=== PATIENT | female | born 1990 | race Caucasian/White ===

== ENCOUNTER 2023-06-23 08:08 | Inpatient (IN) | payer BC, MEDICAID, SELFPAY ==
[2023-06-23] MEDS ORDERED: Misoprostol 200 MCG TAB PR PRN (08:14)
[2023-06-23] MEDS ORDERED: HYDROcodone/Acetaminophen 5/325 mg Tablet PO PRN ×3 (08:14→13:07)
[2023-06-23] MEDS ORDERED: Ondansetron PF 4 MG/2 ML Vial IVP PRN ×2 (08:14→13:07)
[2023-06-23] MEDS ORDERED: Lactated Ringer's 1,000 ML IV PRN (08:14)
[2023-06-23] MEDS ORDERED: fentaNYL 50 mcg/mL 1 mL Vial SLOW IVP PRN (08:14)
[2023-06-23] MEDS ORDERED: Methylergonovine 0.2 MG/ML VIAL IM PRN (08:14)
[2023-06-23] MEDS ORDERED: hydrALAZINE 20 MG/ML VIAL SLOW IVP PRN ×2 (08:14→13:07)
[2023-06-23] MEDS ORDERED: Promethazine HCl 25 MG/ML VIAL IM PRN (08:14)
[2023-06-23 08:45] LABS: Hematocrit 36.3 % (34.9-44.5); Hemoglobin 12.3 g/dL (12.0-15.5); Mean Corpuscular HGB CONC 33.9 g/dL (32.0-36.0); Mean Corpuscular Hemoglobin 31.2 pg (27.0-33.0); Mean Corpuscular Volume 92.1 fl (81.6-98.3); Mean Platelet Volume 10.4 fl (7.4-10.4); Platelet Count 212 10x3/uL (150-450); Red Blood Cell (RBC) Count 3.94 10x6/uL (3.90-5.03); White Blood Cell (WBC) Count 12.7 10x3/uL (3.5-10.5)
[2023-06-23 09:25] LABS: HBsAg Index 0.24 S/CO (0-0.99); Hep B Surf Ag - L&D Non-Reactive S/CO (NonReactive); Syphilis Antibody Nonreactive (Nonreactive); Syphilis Antibody Index 0.03 S/CO (<1.00 Non-Reactive)
[2023-06-23] MEDS: Lidocaine 1% (PF) 30 ML VIAL SC PRN (10:43)
[2023-06-23] MEDS: Oxytocin 30 units/NS 500 ML 500 ML IV SCH (10:43)
[2023-06-23] MEDS: Oxytocin 30 units/NS 500 ML 500 ML ONE (11:01)
[2023-06-23] MEDS: Lidocaine 1% (PF) 30 ML VIAL ONE (11:01)
[2023-06-23 11:25] VITALS: BMI 27.8
[2023-06-23] MEDS: Ibuprofen 800 MG TAB PO PRN (12:46)
[2023-06-23] MEDS ORDERED: Bisacodyl 10 MG SUPP PR PRN (13:07)
[2023-06-23] MEDS ORDERED: Milk Of Magnesia 30 ML UDCUP PO PRN (13:07)
[2023-06-23] MEDS ORDERED: Misoprostol 200 MCG TAB VAG PRN (13:07)
[2023-06-23] MEDS ORDERED: Lanolin Ointment 7 GM TUBE TOP PRN (13:07)
[2023-06-23] MEDS ORDERED: Oxytocin 30 units/NS 500 ML 500 ML IV SCH (13:07)
[2023-06-23] MEDS ORDERED: Benzocaine-Menthol 82.5 ML CAN TOP PRN (13:07)
[2023-06-23 21:37] LABS: #Basophils 0.03 10x3/uL (0.0-0.2); #Eosinphils 0.07 10x3/uL (0.0-0.5); #Monocytes 1.07 10x3/uL (0.0-1.1); #Neutrophils 14.62 10x3/uL (1.5-8.4); %Basophils 0.2 % (0.0-2.0); %Eosinophils 0.4 % (0.0-6.0); %Lymphocytes 11.2 % (18.0-47.0); %Neutrophils 81.5 % (40.0-75.0); Hematocrit 29.2 % (34.9-44.5); Hemoglobin 10.1 g/dL (12.0-15.5); Mean Corpuscular HGB CONC 34.6 g/dL (32.0-36.0); Mean Corpuscular Hemoglobin 31.8 pg (27.0-33.0); Mean Corpuscular Volume 91.8 fl (81.6-98.3); Mean Platelet Volume 9.5 fl (7.4-10.4); Platelet Count 199 10x3/uL (150-450); Red Blood Cell (RBC) Count 3.18 10x6/uL (3.90-5.03); White Blood Cell (WBC) Count 17.9 10x3/uL (3.5-10.5)
[2023-06-23 21:49] LABS: ALT (SGPT) 13 U/L (8-55); AST (SGOT) 19 U/L (5-34); Albumin 2.6 g/dL (3.5-5.0); Alkaline Phosphatase 108 U/L (40-110); Anion Gap 12 mmol/L (10-20); BUN (Urea Nitrogen) 10 mg/dL (7.0-18.7); Bilirubin, Total 0.3 mg/dL (0.2-1.2); Calc. Creatinine Clearance 162 mL/min (70-130); Calcium 8.6 mg/dL (7.8-10.44); Carbon Dioxide 22 mmol/L (22-29); Chloride 107 mmol/L (98-107); Estimated GFR 121; Globulin 2.8 g/dL (2.4-3.5); Glucose 109 mg/dL (70-105); Potassium 4.2 mmol/L (3.5-5.1); Protein, Total 5.4 g/dL (6.0-8.3); Sodium 137 mmol/L (136-145)
[2023-06-23] MEDS: Ferrous Sulfate 325 MG TAB PO SCH (22:17)
[2023-06-23] MEDS: Ibuprofen 800 MG TAB PO SCH (22:17)
[2023-06-23] MEDS: Docusate 100 MG CAP PO SCH (22:18)
[2023-06-23 22:32] LABS: Iron Binding Capacity, Total 349 mcg/dL (265-497)
[2023-06-23 23:11] LABS: Iron 60 ug/dL (50-170)
[2023-06-24 03:56] LABS: #Basophils 0.05 10x3/uL (0.0-0.2); #Eosinphils 0.13 10x3/uL (0.0-0.5); #Monocytes 0.89 10x3/uL (0.0-1.1); #Neutrophils 11.68 10x3/uL (1.5-8.4); %Basophils 0.3 % (0.0-2.0); %Eosinophils 0.9 % (0.0-6.0); %Lymphocytes 15.7 % (18.0-47.0); %Monocytes 5.8 % (0.0-10.0); %Neutrophils 76.4 % (40.0-75.0); Hematocrit 26.7 % (34.9-44.5); Hemoglobin 9.1 g/dL (12.0-15.5); Mean Corpuscular HGB CONC 34.1 g/dL (32.0-36.0); Mean Corpuscular Hemoglobin 31.7 pg (27.0-33.0); Mean Platelet Volume 9.6 fl (7.4-10.4); Platelet Count 189 10x3/uL (150-450); RBC Distribution Width 14.3 % (11.5-14.5); Red Blood Cell (RBC) Count 2.87 10x6/uL (3.90-5.03); White Blood Cell (WBC) Count 15.3 10x3/uL (3.5-10.5)
[2023-06-24] MEDS: Prenatal Vitamin 1 TAB PO SCH (07:58)
[2023-06-24] MEDS: Boostrix 0.5 ML (Tdap) VIAL (>/=7 yrs of age) IM ONE (09:31)
[2023-06-24] MEDS: Acetaminophen 500 MG TAB PO SCH (10:37)
[2023-06-24] MEDS: Iron Sucrose Complex 500 MG in Sodium Chloride 0.9% 250 ML 250 ML IVPB SCH (11:11)
[2023-06-24] MEDS: HYDROcodone/Acetaminophen 5/325 mg Tablet PO PRN (22:22)
[2023-06-25 08:26] VITALS: BP 94/50; TEMP 98.7
== END 2023-06-25 16:20 | disposition home or self-care (01) | DRG 807 ==
LOC: CSHLD 08:08 → CSHPP 13:37
PROVIDERS: ADMIT Obstetrics & Gynecology; ATTEND Obstetrics & Gynecology
PROC: 10E0XZZ Delivery of Products of Conception, External Approach (ICD-10-PCS; principal; 2023-06-23)
PROC: 0KQM0ZZ Repair Perineum Muscle, Open Approach (ICD-10-PCS; 2023-06-23)
DX: O48.0 Post-term pregnancy (principal); Z37.0 Single live birth; Z3A.40 40 weeks gestation of pregnancy; O70.1 Second degree perineal laceration during delivery; O99.02 Anemia complicating childbirth
CPT/HCPCS: 36415; 71045; 80053; 82728; 83540; 83550; 85025; 85027; 85379; 86780; 86850; 86900; 86901; 87340; 99285; J1756; J2001; J2590; J7050